=== PATIENT | female | born 1960 | race Caucasian/White ===

== ENCOUNTER 2016-08-27 22:25 | Emergency (ER) | payer OTHER ==
[2016-08-27] MEDS ORDERED: DIAZEPAM 5 MG/ML DISP.SYRIN IM ONE (22:45)
[2016-08-27] MEDS ORDERED: KETOROLAC TROMETHAMINE 30 MG/1ML VIAL IM ONE (22:46)
[2016-08-27] MEDS ORDERED: DIAZEPAM 5 MG TABLET PO ONE (23:29)
--- NOTE | 2016-08-27 23:50 | ED Physician Documentation ---
General Adult - HISTORIAN Historian: patient - HPI Stated Complaint: LBP Chief Complaint: General Adult Onset: days ago (4) Timing: still present Severity: moderate Further Comments: yes (Pt is a 56 yo female with low back pain x 4 days. No acute event. No hx significatn back injury. Pain is in lower back and radiates to R leg.) - ROS CONST: no problems EYES/ENT: none CVS/RESP: none GI/: none MS/SKIN/LYMPH: back pain - PAST HX Past History: hypertension Other History: diabetes Type 2 Allergies/Adverse Reactions: Allergies Allergy/AdvReac Type Severity Reaction Status Date / Time amlodipine besylate Allergy Verified 08/27/16 23:00 [From [facility]] Home Medications: Ambulatory Orders Medication Instructions Recorded Hydrochlorothiazide 25 mg PO DAILY 07/27/13 [Hydrochlorothiazide] Lisinopril [Lisinopril] 40 mg PO DAILY 07/27/13 Carvedilol [Coreg] 6.25 mg PO BID 08/27/16 Hydrochlorothiazide 12.5 mg PO D 08/27/16 - SOCIAL HX Smoking History: cigarettes - FAMILY HX Family History: No - VITAL SIGNS Vital Signs: Vital Signs Temp Pulse Resp BP Pulse Ox 98 F 66 16 173/77 93 08/27/16 22:25 08/27/16 22:25 08/27/16 22:25 08/27/16 22:25 08/27/16 22:25 - REVIEWED ASSESSMENTS Nursing Assessment Reviewed: Yes Vitals Reviewed: Yes Progress - Progress Progress: Toradol 30 mg IM Diazepam 5 mg IM Diazepam 5 mg, one tablet for home. ED Results Lab/Radiology - Orders Orders: ED Orders Category Date Time Status Diazepam [Valium] Med 08/27/16 22:45 Discontinued 5 mg IM NOW ONE Diazepam [Valium] Med 08/27/16 23:29 Discontinued 5 mg PO NOW ONE Ketorolac Tromethamine [Toradol] Med 08/27/16 22:46 Discontinued 30 mg IM NOW ONE General Adult Physical Exam - PHYSICAL EXAM GENERAL APPEARANCE: moderate distress EENT: eye inspection normal NECK: normal inspection, supple RESPIRATORY: no resp distress, chest non-tender, breath sounds normal CVS: reg rate & rhythm, heart sounds normal BACK: normal inspection, other (paralumbar muscle spasm) SKIN: warm/dry EXTREMITIES: non-tender, normal range of motion, no evidence of injury NEURO: oriented X3, motor nml, sensation nml, other (DTR's wnl) Discharge Clincal Impression: Muscle spasm Low back pain Qualifiers: Chronicity: acute Back pain laterality: unspecified Sciatica presence: unspecified whether sciatica present Qualified Code(s): M54.5 - Low back pain Referrals: Pinky Jiménez FNP [Primary Care Provider] - Home Medications: Ambulatory Orders Hydrochlorothiazide [Hydrochlorothiazide] 25 mg PO DAILY 07/27/13 Lisinopril [Lisinopril] 40 mg PO DAILY 07/27/13 Carvedilol [Coreg] 6.25 mg PO BID 08/27/16 Hydrochlorothiazide 12.5 mg PO D 08/27/16 Condition: Good Disposition: 01 HOME, SELF-CARE Decision to Admit: NO Decision Time: 23:25
[2016-08-28 02:44] VITALS: BP 167/64
== END 2016-08-27 23:40 | disposition home or self-care (01) ==
LOC: ED 22:25
DX: M54.5 Low back pain (principal)
CPT/HCPCS: 96372; 99282; 99283; J1885; J3360

== ENCOUNTER 2017-04-13 10:55 | Outpatient (CLI) | payer OTHER ==
[2016-08-28 02:44] VITALS: BP 167/64
== END 2017-04-13 10:56 ==
LOC: CARD 10:55
PROVIDERS: ATTEND Internal Medicine Cardiovascular Disease
DX: I25.10 Atherosclerotic heart disease of native coronary artery without angina pectoris (principal); I73.9 Peripheral vascular disease, unspecified; F17.210 Nicotine dependence, cigarettes, uncomplicated; E11.9 Type 2 diabetes mellitus without complications; E78.5 Hyperlipidemia, unspecified; I10 Essential (primary) hypertension; J44.9 Chronic obstructive pulmonary disease, unspecified
CPT/HCPCS: 99214

== ENCOUNTER 2018-02-20 14:13 | Emergency (ER) | payer BC, OTHER ==
[2018-02-20] MEDS ORDERED: IPRATROPIUM/ALBUTEROL SULFATE 3 ML AMPUL.NEB NEB ONE ×3 (14:34→15:44)
[2018-02-20 15:06] LABS: BASOPHILS % 0.5 (0.0-1.5); EOSINOPHILS % 2.2 % (0.0-6.8); MEAN CORPUSCULAR HEMOGLOBIN 32.1 pg (28.0-34.0); MEAN CORPUSCULAR VOLUME 94.9 fl (80.0-100.0); MONOCYTES % 4.1 % (0.0-11.0)
[2018-02-20 15:18] LABS: eGFR (African) > 60; eGFR (Non-African) > 60
[2018-02-20] MEDS ORDERED: HYDROCHLOROTHIAZIDE 25 MG TABLET PO ONE (15:31)
--- NOTE | 2018-02-20 15:59 | Diagnostic Imaging Report ---
CARMELITA SALDANA [facility] [address] [facility] [address] [place] [address]. [address] Report Submission Date: Feb 20, 2018 3:08:57 PM CDT Patient Study Name: MARIELENA GONZALEZ Date: Feb 20, 2018 2:45:05 PM CDT Modality Type: DX Gender: F Description: CHEST : 58 Institution: [facility] Physician: CARMELITA SALDANA Chest, PA and lateral History: Cough, congestion Findings: No infiltrate, effusion or pneumothorax is present. Heart size, mediastinum and pulmonary vascularity are normal. There is calcification in the thoracic aorta. Impression: No active pulmonary disease. Electronically signed on Feb 20, 2018 3:08:57 PM CDT by: Juan Manuel PANTOJA
[2018-02-20] MEDS ORDERED: HYDROCHLOROTHIAZIDE 25 MG TABLET PO SCH (16:00)
--- NOTE | 2018-02-20 16:00 | ED Physician Documentation ---
General Adult - HISTORIAN Historian: patient - HPI Stated Complaint: cough, SOA Chief Complaint: General Adult Additional Information: Cough and congestion worse for 3-4 days. Seen 3 weeks ago for same and treated with doxycycline and prednisone. Got better for a while. Works at [email or web address] in [employer] where she says smoke is not as bad. Both she, her and her daughter smoke at home. Out of all of her meds for two weeks, but refilled them on 02/19. Levi snot been taking HCTZ because cough causes urinary incontinence. No fever or sweats. No other modifying factors or associated events. - ROS CONST: no problems - PAST HX Past History: COPD, hypertension, other (NIDDM) Allergies/Adverse Reactions: Allergies Allergy/AdvReac Type Severity Reaction Status Date / Time amlodipine besylate Allergy Verified 08/27/16 23:00 [From [facility]] Home Medications: Ambulatory Orders Medication Instructions Recorded Hydrochlorothiazide 25 mg PO DAILY 07/27/13 [Hydrochlorothiazide] Lisinopril [Lisinopril] 40 mg PO DAILY 07/27/13 Carvedilol [Coreg] 6.25 mg PO BID 08/27/16 Hydrochlorothiazide 12.5 mg PO D 08/27/16 Azithromycin [Zithromax] 250 mg PO DAILY #6 tablet 02/20/18 Phenylephrine HCl/Cod/Prometh 5 ml PO Q6H PRN #120 ml 02/20/18 [Phenergan Vc-Codeine Syrup] predniSONE [Deltasone] 30 mg PO DAILY #21 tablet 02/20/18 - SOCIAL HX Smoking History: cigarettes (1 1/2 PPD) - FAMILY HX Family History: No - VITAL SIGNS Vital Signs: Vital Signs Temp Pulse Resp BP Pulse Ox 98.9 F 55 L 26 H 163/114 92 02/20/18 14:13 02/20/18 14:13 02/20/18 14:13 02/20/18 14:13 02/20/18 14:13 - REVIEWED ASSESSMENTS Nursing Assessment Reviewed: Yes Vitals Reviewed: Yes Progress - Progress Progress: Report Submission Date: Feb 20, 2018 3:08:57 PM CDT Patient Study Name: MARIELENA GONZALEZ Date: Feb 20, 2018 2:45:05 PM CDT Modality Type: DX Gender: F Description: CHEST : 58 Institution: [facility] Physician: CARMELITA SALDANA - Chest, PA and lateral History: Cough, congestion Findings: No infiltrate, effusion or pneumothorax is present. Heart size, mediastinum and pulmonary vascularity are normal. There is calcification in the thoracic aorta. Impression: No active pulmonary disease. Electronically signed on Feb 20, 2018 3:08:57 PM CDT by: Juan Manuel Dawn Also sent with script for Duoneb nebs. She has albuterol for neb at home. ED Results Lab/Radiology - Lab Results Lab Results: Lab Results 02/20/18 02/20/18 Unknown Unknown WBC 7.00 K/ul K/ul (4.00-12.00) RBC 4.69 M/ul M/ul (3.90-5.20) Hgb 15.1 g/dL g/dL (12.0-16.0) Hct 44.5 % % (34.5-46.5) MCV 94.9 fl fl (80.0-100.0) MCH 32.1 pg pg (28.0-34.0) MCHC 33.9 g/dL g/dL (30.0-36.0) RDW 12.6 % % (11.3-14.3) Plt Count 278 K/mm3 K/mm3 (130-400) Neut % (Auto) 56.7 % % (39.0-79.0) Lymph % (Auto) 33.9 % % (16.0-50.0) [place] % (Auto) 4.1 % % (0.0-11.0) Eos % (Auto) 2.2 % % (0.0-6.8) Baso % (Auto) 0.5 (0.0-1.5) Neut # (Auto) 4.0 # k/uL # k/uL (1.4-7.7) Lymph # (Auto) 2.4 # k/uL # k/uL (0.6-4.0) [place] # (Auto) 0.3 # k/uL # k/uL (0.0-0.9) Eos # (Auto) 0.2 # k/uL # k/uL (0.0-0.6) Baso # (Auto) 0.0 # k/uL # k/uL (0.0-0.5) Reactive Lymphs % 2.6 % % (0.0-5.0) Reactive Lymphs # 0.2 # k/uL # k/uL (0.0-0.8) Sodium 137 mmol/L mmol/L (136-145) Potassium 4.2 mmol/L mmol/L (3.5-5.1) Chloride 98 mmol/L mmol/L (98-107) Carbon Dioxide 30 mmol/L mmol/L (22-30) BUN 17 mg/dL mg/dL (7-17) Creatinine 0.60 mg/dL mg/dL (0.52-1.04) Estimated Creat Clear 146 Est GFR ( Amer) > 60 (60 - ) Est GFR (Non-Af Amer) > 60 (60 - ) Glucose 359 mg/dL H mg/dL (74-106) Calcium 10.0 mg/dL mg/dL (8.4-10.2) Total Bilirubin 0.1 mg/dL L mg/dL (0.2-1.3) AST 20 U/L U/L (15-46) ALT 33 U/L U/L (13-69) Alkaline Phosphatase 125 U/L U/L (38-126) Total Protein 7.8 g/dL g/dL (6.3-8.2) Albumin 4.6 g/dL g/dL (3.5-5.0) - Orders Orders: ED Orders Category Date Time Status Place IV Lock 1T Care 02/20/18 14:35 Active CHEST 2VIEW [RAD] Stat Exams 02/20/18 Taken BLOOD CULTURE Stat Lab 02/20/18 Ordered CBC/PLATELET/DIFF Routine Lab 02/20/18 Completed CMP Routine Lab 02/20/18 Completed URINALYSIS Routine Lab 02/20/18 Received Hydrochlorothiazide [Hydrodiuril] Med 02/20/18 16:00 Ordered 25 mg PO DAILY Ipratropium/Albuterol Sulfate [Duoneb] Med 02/20/18 14:34 Discontinued 3 ml NEB .STK-MED ONE Ipratropium/Albuterol Sulfate [Duoneb] Med 02/20/18 14:35 Discontinued 3 ml NEB NOW ONE Ipratropium/Albuterol Sulfate [Duoneb] Med 02/20/18 15:44 Once 9 ml NEB NOW ONE General Adult Physical Exam - PHYSICAL EXAM GENERAL APPEARANCE: wheezing throughout on arrival in ER EENT: eye inspection normal, ENT inspection normal, pharynx normal NECK: normal inspection, supple RESPIRATORY: breath sounds normal (at time of exam, after Duoneb. Speaks in quite lengthy sentences) CVS: reg rate & rhythm, heart sounds normal BACK: normal inspection, no CVA tenderness SKIN: warm/dry, normal color NEURO: CN's nml as tested, motor nml, sensation nml, cognition normal Discharge Clincal Impression: Chronic bronchitis Qualifiers: Chronic bronchitis type: unspecified Qualified Code(s): J42 - Unspecified chronic bronchitis Prescriptions: Azithromycin [Zithromax] 250 mg PO DAILY #6 tablet Phenylephrine HCl/Cod/Prometh [Phenergan Vc-Codeine Syrup] 5 ml PO Q6H PRN #120 ml PRN Reason: Cough predniSONE [Deltasone] 30 mg PO DAILY #21 tablet Referrals: Pinky Jiménez FNP [Primary Care Provider] - 2 Days Additional Instructions: It is critical to your well being that you avoid all smoke. Drink plenty of water. Follow up with your provider in the next 10 days for further evaluation of your your blood sugar and blood pressure. Condition: Good Disposition: 01 HOME, SELF-CARE Decision to Admit: NO Decision Time: 16:00
[2018-02-20 16:19] VITALS: BP 189/105
[2018-02-21 06:21] LABS: APPEARANCE,URINE CLEAR (CLEAR); COLOR,URINE YELLOW (YELLOW); OCCULT BLOOD,URINE TRACE (NEGATIVE)
[2018-02-21 06:22] LABS: PH URINE 5.5 (5.0 - 8.0); UROBILINOGEN URINE 0.2 Eu (0.2-1.0)
== END 2018-02-20 16:04 | disposition home or self-care (01) ==
LOC: ED 14:13
DX: J42 Unspecified chronic bronchitis (principal)
CPT/HCPCS: 71046; 80053; 81002; 85025; 87040; 94640; 99284; S1016

== ENCOUNTER 2018-03-03 16:07 | Inpatient (IN) | payer BC, OTHER ==
--- NOTE | 2018-03-03 16:14 | ED Physician Documentation ---
General Adult - HISTORIAN Historian: patient - HPI Stated Complaint: high blood sugar Chief Complaint: General Adult Onset: days ago (6) Timing: still present Severity: moderate Further Comments: yes (She states approx 2 weeks ago she was seen in ER for what she was told was bronchitis and her blood sugar was 300 or so and she was told this was due to the steriods. She states her meter has been broken but over the last few days she has "felt like shit" so she checked and she got 300 two mornings in a row and today it read too high to read. She is increasing her fluids and she is urinating more. Denies any diarrhea. She has stopped the steriods due to the blood sugar.) - ROS CONST: recent illness CVS/RESP: shortness of breath, cough. denies: chest pain GI/: none MS/SKIN/LYMPH: denies: rash NEURO/PSYCH: denies: headache, fainting, dizziness - PAST HX Past History: COPD, other (DM 2 ) Surgeries/Procedures: none Immunizations: UTD Allergies/Adverse Reactions: Allergies Allergy/AdvReac Type Severity Reaction Status Date / Time amlodipine besylate Allergy Verified 03/03/18 16:51 [From [facility]] morphine Allergy Verified 03/03/18 16:51 Home Medications: Ambulatory Orders Medication Instructions Recorded Hydrochlorothiazide 25 mg PO DAILY 07/27/13 Lisinopril 40 mg PO DAILY 07/27/13 Carvedilol [Coreg] 6.25 mg PO BID 08/27/16 Hydrochlorothiazide 12.5 mg PO D 08/27/16 Azithromycin [Zithromax] 250 mg PO DAILY #6 tablet 02/20/18 Phenylephrine HCl/Cod/Prometh 5 ml PO Q6H PRN #120 ml 02/20/18 [Phenergan Vc-Codeine Syrup] predniSONE [Deltasone] 30 mg PO DAILY #21 tablet 02/20/18 - SOCIAL HX Smoking History: cigarettes Alcohol Use: none Drug Use: none - FAMILY HX Family History: No - VITAL SIGNS Vital Signs: Vital Signs Temp Pulse Resp BP Pulse Ox 189/105 02/20/18 16:17 - REVIEWED ASSESSMENTS Nursing Assessment Reviewed: Yes Vitals Reviewed: Yes Progress - Progress Progress: 1740: discussed results so far. She is aware and she is agreeable to admission if needed DG 1800: did discuss steriod - she did take 6 days of 1 30 mg a day then 2 days of half. DG 181: discussed case with Dr Beatty will admit obs until full labs return pt and spouse are agreeable DG ED Results Lab/Radiology - Radiology Radiology Impressions: Examination: PA and lateral chest. History: Evaluate lung thompson. CXR, WEAKNESS FOR A FEW DAYS, BRONCHITIS A FEW WEEKS AGO, PT STATES COPD AND SMOKER (Hx Comparison exam: 20 February 2018 Findings: PA lateral chest demonstrate a normal cardiac and mediastinal silhouette. Vascular calcifications involving the aortic arch. No focal infiltrate. No blunting of the costophrenic margins. Osseous structures are appropriate for age. Impression: No acute pulmonary process. Electronically signed on Mar 03, 2018 5:34:11 PM CDT by: Rafa Chung General Adult Physical Exam - PHYSICAL EXAM GENERAL APPEARANCE: no distress EENT: eye inspection normal, ENT inspection normal NECK: normal inspection RESPIRATORY: wheezes, other (decreased air flow through out ) CVS: reg rate & rhythm, heart sounds normal, equal pulses, no murmur ABDOMEN: soft, normal bowel sounds, no distension, non-tender BACK: normal inspection SKIN: warm/dry, normal color EXTREMITIES: non-tender, normal range of motion, no evidence of injury, no edema NEURO: oriented X3, CN's nml as tested, motor nml, sensation nml, mood/affect nml, cognition normal Discharge Clincal Impression: Hyperglycemia Referrals: Pinky Jiménez FNP [REFERRING] - 2 Days Condition: Fair Disposition: ADMITTED INPATIENT Decision to Admit: [id number] Date of Decison to Admit: 03/03/18 Decision Time: 18:14
[2018-03-03] MEDS ORDERED: IPRATROPIUM/ALBUTEROL SULFATE 3 ML AMPUL.NEB NEB ONE ×2 (16:27→19:46)
[2018-03-03] MEDS ORDERED: 0.9 % SODIUM CHLORIDE 1,000 ML IV ONE (16:27)
[2018-03-03 16:45] LABS: BASOPHILS % 0.2 (0.0-1.5); EOSINOPHILS % 0.2 % (0.0-6.8); MEAN CORPUSCULAR VOLUME 95.5 fl (80.0-100.0); MONOCYTES % 2.3 % (0.0-11.0); NEUTROPHILS # 15.2 # k/uL (1.4-7.7)
[2018-03-03] MEDS ORDERED: LORazepam 1 MG TABLET PO ONE (19:06)
--- NOTE | 2018-03-03 19:47 | Diagnostic Imaging Report ---
WES PRICE [facility] [address] [facility] [address] [place], [place]. [address] Report Submission Date: Mar 03, 2018 5:34:11 PM CDT Patient Study Name: MARIELENA GONZALEZ Date: Mar 03, 2018 4:30:39 PM CDT Modality Type: DX Gender: F Description: CHEST : 58 Institution: [facility] Physician: WES PRICE Examination: PA and lateral chest. History: Evaluate lung thompson. CXR, WEAKNESS FOR A FEW DAYS, BRONCHITIS A FEW WEEKS AGO, PT STATES COPD AND SMOKER (Hx Comparison exam: 20 February 2018 Findings: PA lateral chest demonstrate a normal cardiac and mediastinal silhouette. Vascular calcifications involving the aortic arch. No focal infiltrate. No blunting of the costophrenic margins. Osseous structures are appropriate for age. Impression: No acute pulmonary process. Electronically signed on Mar 03, 2018 5:34:11 PM CDT by: Rafa PANTOJA
--- NOTE | 2018-03-03 20:50 | Diagnostic Imaging Report ---
WES PRICE [facility] [address] [facility].[address] [address] Report Submission Date: Mar 03, 2018 8:00:29 PM CDT Patient Study Name: MARIELENA GONZALEZ Date: Mar 03, 2018 7:21:23 PM CDT Modality Type: CT\SR Gender: F Description: CT PE CHEST : 58 Institution: [facility] Physician: WES PRICE CT pulmonary angiography Clinical history: Shortness of breath. Rule out pulmonary embolus. Contrast administered: 93 mL of Visipaque 320. Technique: CT pulmonary angiography is performed with intravenous infusion of contrast. Sagittal and coronal reconstructions were performed by the technologist. Findings: There are emphysematous changes in lungs with mildly dilated air spaces worse in the upper lobes. There is minimal ground-glass type infiltrate in the right middle lobe. There is mild bronchial wall thickening in the lung bases consistent with bibasilar bronchitis. There is no pleural effusion or significant pleural thickening. The central airways are patent. Vascular calcification is present in the thoracic aorta with extension into the origins of the great vessels and coronary arteries. There is no mediastinal or hilar mass or significant adenopathy. There is no filling defect in the pulmonary arteries or vascular cutoff to suggest the diagnosis of pulmonary embolus. Impression: 1. Emphysema. 2. Bibasilar bronchitis. 3. Minimal ground-glass infiltrate right middle lobe. 4. No pulmonary embolus. Electronically signed on Mar 03, 2018 8:00:29 PM CDT by: Kelechi PANTOJA
[2018-03-03] MEDS ORDERED: BUDESONIDE 0.5MG/2ML AMPUL.NEB NEB SCH (21:00)
[2018-03-03] MEDS: 0.9 % SODIUM CHLORIDE 1,000 ML IV SCH (21:23)
[2018-03-03] MEDS: CARVEDILOL 6.25 MG TABLET PO SCH (21:23)
[2018-03-03] MEDS: ENOXAPARIN SODIUM 30 MG/0.3 ML DISP.SYRIN SQ SCH (21:23)
--- NOTE | 2018-03-03 21:52 | History and Physical Report ---
History of Present Illnes - History of Present Illness Reason for Visit: hyperglycemia, not feeling well History of Present Illness: 87-year-old white female who stated she is been having some upper respiratory symptoms since September of this year. Patient was seen in an urgent care clinic and started on antibiotic and steroid therapy in September. Patient stated her symptoms did improve. However she had a reoccurrence of her symptoms at the end of December. Patient was once again started on antibiotic therapy and steroid with improvement. Approximately one week ago she started having reoccurrence of her symptoms again. Patient presented to the ED and at that time was noted to have a blood sugar in the mid to 300 range. Patient has been diabetic for a number of years but has been maintain on glyburide BID. Patient had not been checking her blood sugars on a regular basis. Patient was once again started on azithromycin and steroids. Patient has been having a lot of polydipsia and polyuria over the last 10 days. Patient had not been feeling well. Patient subsequently came back to the emergency room for evaluation. In the emergency room patient blood sugar was noted to be 600. On CT scan of the checks patient was found to have an infiltrate and was felt to be developing a pneumonia. Patient was subsequently admitted to the hospital for further care and evaluation. - Past Medical History Cardiac: CAD (2010 SD with one stint placed) Pulmonary: Bronchitis - Past Surgical History Past Surgical History: Cholecystectomy, Tonsillectomy, Other (D&C) - Past Family History Mother Family History: (lung cancer, hx of Bipolar) Father Family History: (MVA) Brother 1 Family History: None (good health) - Past Social History Smoke: <1 pack per day Occupation: work at [employer] in [employer] department Alcohol: None Drugs: None Lives: With Family - Health Maintenance Health Maintenance: denies: Cholesterol Influenza Vaccine: Current for this Influenza Season Pneumonia Vaccine: Yes Resuscitation Status: Resusciation Status Resuscitation Status Full Code - Unable to Obtain History Unable to Obtain: No Review of Systems - Review of Systems Constitutional: negative: Fever, Chills Eyes: negative: pain, vision change ENT: negative: Ear Pain, Ear Discharge, Nose Pain, Nose Discharge, Nose Congestion, Mouth Pain, Throat Swelling Respiratory: Cough, SOB with Excertion, Sputum (green yellow). negative: Dry, Shortness of Breath, Hemoptysis, Pleuritic Pain Cardiovascular: negative: Chest Pain, Palpitations, Orthopnea Gastrointestinal: Nausea. negative: Vomiting, Abdominal Pain, Diarrhea, Constipation, Melena, Hematochezia Genitourinary: Dysuria, Frequency, Hematuria. negative: Incontinence Musculoskeletal: negative: Neck Pain, Shoulder Pain Skin: negative: Rash Neurological: Weakness. negative: Numbness, Incoordination, Change in Speech, Confusion, Seizures - Medications/Allergies Allergies/Adverse Reactions: Allergies Allergy/AdvReac Type Severity Reaction Status Date / Time amlodipine besylate Allergy Verified 03/03/18 16:51 [From [facility]] morphine Allergy Verified 03/03/18 16:51 Current Inpatient Medications: Current Inpatient Medications Albuterol/Ipratropium (Duoneb) 3 ml NEB NOW ONE Stop: 03/03/18 19:47 Last Admin: 03/03/18 21:25 Dose: Not Given Albuterol/Ipratropium (Duoneb) 3 ml NEB Q4 [facility] Carvedilol (Coreg) 6.25 mg PO BID [facility] Last Admin: 03/03/18 21:23 Dose: 6.25 mg Enoxaparin Sodium (Lovenox) 30 mg SQ QD [facility] Stop: 03/16/18 21:01 Last Admin: 03/03/18 21:23 Dose: 30 mg Sodium Chloride (Normal Saline) 1,000 mls @ 100 mls/hr IV Q10H [facility] Last Admin: 03/03/18 21:23 Dose: 100 mls/hr Miscellaneous (Hydrochlorothiazide [Hydrochlorothiazide]) 12.5 mg PO D [facility] Miscellaneous (Lisinopril [Lisinopril]) 40 mg PO DAILY [facility] Exam - Exam Vital Signs: Vital Signs (72 hours) 03/03/18 16:07 Temperature 98.1 F Pulse Rate [ 76 Right Pulse ox] Respiratory 16 Rate Blood Pressure 140/80 [Right Arm] O2 Sat by Pulse 90 L Oximetry General: Alert, Oriented to Person, Oriented to Place, Oriented to Time, Cooperative, Moderate distress HEENT: Atraumatic, PERRLA, EOMI, Nose Mucous membr. moist/[place], Dentition Normal, Hearing Grossly Normal. No: Mouth Mucous membr. moist/[place] (dry), Pharyngeal Erythema Neck: Normal Range of Motion. No: Stridor, Rigidity (WNL) Carotids: WNL Thyroid: WNL Lungs: Clear to auscultation, Normal air movement, Speaks full Sentences Cardiovascular: Regular rate, Normal S1, Normal S2, No murmurs Abdomen: Normal bowel sounds, Soft, No tenderness, No hepatospenomegaly, No masses Integumentary: Normal, [place], Warm, Dry Extremities: No clubbing, No cyanosis, No edema, Normal pulses, No tenderness/swelling Neurological: Normal gait, Normal speech, Strength Equal Bilat, Normal tone, Sensation intact, Cranial nerves 3-12 NL, Reflexes 2+ Psych/Mental Status: Mental status NL, Mood NL, Appropriate Affect, Intact [place] gment - Laboratory Results Laboratory Results: Laboratory Results 03/03/18 03/03/18 16:26 18:35 WBC 17.70 H RBC 4.56 Hgb 15.1 Hct 43.6 MCV 95.5 MCH 33.0 MCHC 34.6 RDW 12.9 Plt Count 275 Neut % (Auto) 86.2 H Lymph % (Auto) 10.2 L [place] % (Auto) 2.3 Eos % (Auto) 0.2 Baso % (Auto) 0.2 Neut # (Auto) 15.2 H Lymph # (Auto) 1.8 [place] # (Auto) 0.4 Eos # (Auto) 0.0 Baso # (Auto) 0.0 Reactive Lymphs % 0.9 Reactive Lymphs # 0.2 D-Dimer 384 Assessment/Plan - Assessment/Plan (1) Type 2 diabetes mellitus Status: Chronic Qualifiers: Diabetes mellitus terminal make up operator insulin use: without terminal make up operator use Diabetes mellitus complication status: with hyperglycemia Qualified Code(s): E11.65 - Type 2 diabetes mellitus with hyperglycemia Narrative Support Text: I suspect that the patient may be an early DKA with the is symptoms that she is having. Will go ahead and give the patient IV fluids. Will start patient on insulin therapy. Will get a dietary consult for her diabetes. (2) Pneumonia Status: Acute Qualifiers: Lung location: middle lobe of lung Assessment: Patient will be started on DuoNeb treatments every four hours. Because of the patient diabetes will hold off of steroid therapy. Patient will be started on antibiotic therapy of Levaquin and azithromycin. (3) Essential hypertension Status: Chronic Plan: Continue home medications. VTE Assessment - RISK FACTOR SCORE VTE RISK FACTOR SCORES: AGE OVER 60 YEARS, ACUTE RESPIRATORY FAILURE/SEVERE COPD, ANTICIPATED BED CONFINEMENT OR IMMOBILIZATION > 24 HOURS - RISK VTE HIGH RISK: SCORE OF 3-4 (RISK PROXIMAL DVT 4-8%) PROPHYLAXIS NEEDED
[2018-03-03] MEDS: IPRATROPIUM/ALBUTEROL SULFATE 3 ML AMPUL.NEB NEB SCH (21:53)
[2018-03-03] MEDS ORDERED: AZITHROMYCIN 500 MG VIAL IV ONE (22:26)
[2018-03-03] MEDS ORDERED: 0.9 % SODIUM CHLORIDE 250 ML IV ONE (22:27)
[2018-03-03] MEDS: BACLOFEN 10 MG TABLET PO PRN (22:34)
[2018-03-03] MEDS: HYDROCHLOROTHIAZIDE 25 MG TABLET PO SCH (22:35)
[2018-03-03] MEDS: INSULIN LISPRO 100 UNIT/ML 3ML VIAL SQ SCH (22:41)
[2018-03-03] MEDS: AZITHROMYCIN 500 MG in 0.9 % SODIUM CHLORIDE 250 ML IV SCH (22:42)
[2018-03-04 00:47] VITALS: BMI 26.7
[2018-03-04] MEDS: IPRATROPIUM/ALBUTEROL SULFATE 3 ML AMPUL.NEB NEB SCH ×6 (01:50→22:30)
[2018-03-04] MEDS: BACLOFEN 10 MG TABLET PO PRN ×3 (05:09→21:28)
[2018-03-04] MEDS ORDERED: INSULIN LISPRO 100 UNIT/ML 3ML VIAL SQ SCH (07:30)
[2018-03-04] MEDS: INSULIN LISPRO 100 UNIT/ML 3ML VIAL SQ SCH ×4 (07:48→21:53)
[2018-03-04 08:28] LABS: APPEARANCE,URINE CLEAR (CLEAR); COLOR,URINE YELLOW (YELLOW); OCCULT BLOOD,URINE TRACE-INTACT (NEGATIVE); PH URINE 5.5 (5.0 - 8.0); UROBILINOGEN URINE 0.2 Eu (0.2-1.0)
[2018-03-04] MEDS ORDERED: HYDROCHLOROTHIAZIDE 12.5 MG PO SCH (09:00)
[2018-03-04] MEDS ORDERED: LISINOPRIL 40 MG PO SCH (09:00)
[2018-03-04] MEDS: CARVEDILOL 6.25 MG TABLET PO SCH ×2 (09:07→21:28)
[2018-03-04] MEDS: LEVOFLOXACIN 500 MG TABLET PO SCH (09:08)
[2018-03-04] MEDS: HYDROCHLOROTHIAZIDE 25 MG TABLET PO SCH (09:08)
[2018-03-04] MEDS: LISINOPRIL 20 MG TABLET PO SCH (09:09)
[2018-03-04] MEDS: 0.9 % SODIUM CHLORIDE 1,000 ML IV SCH ×2 (09:13→13:50)
[2018-03-04] MEDS ORDERED: ACETAMINOPHEN 500 MG TABLET ONE (09:35)
[2018-03-04] MEDS: ACETAMINOPHEN 500 MG TABLET PO PRN ×2 (09:45→19:00)
[2018-03-04 10:22] LABS: BASO % 0.4 % (0.0-1.5); EOS % 0.9 % (0.0-6.8); LYMPH ABS # 4.25 thou/uL (0.60-4.00); MCH. 30.8 pg (28.0-34.0); MCV 89.1 fL (80.0-100.0); MONOCYTE % 4.9 % (0.0-11.0); MONOCYTE ABS # 0.77 thou/uL (0.00-0.90); PLATELET COUNT 252 thou/uL (130-400)
[2018-03-04 10:31] LABS: TOTAL PROTEIN 6.3 g/dL (6.0-8.5)
--- NOTE | 2018-03-04 10:33 | Inpatient Progress Note ---
Subjective - Required Recertification Statement I anticipate X number of days because-include discharge plan: 1 - Review of Systems Events since last encounter: Patient states she is feeling much better today than what she was yesterday. Patient did not have any as much polydipsia and polyuria as previously. Patient still does have a slightly productive cough of green phlegm. Patient is not had any fever or chills noted. General: Fatigue Objective - Exam Vitals and I&O: Vital Signs Temp 99.2 F 03/04/18 06:00 Pulse 78 03/04/18 06:20 Resp 18 03/04/18 06:20 BP 139/64 03/04/18 06:00 Pulse Ox 94 03/04/18 07:00 Intake & Output 03/03/18 03/03/18 03/04/18 11:59 23:59 11:59 Intake Total 600 2049 Balance 600 2049 Weight 70.761 kg 71.215 kg Intake: IV 600 1400 Left Antecubital 600 400 Right Hand 1000 Oral 650 Other: Voiding Method Toilet Toilet # Voids 2 4 General: Alert, Oriented to Person, Oriented to Place, Oriented to Time, Cooperative Neck: Supple, No JVD Lungs: Normal air movement, Wheezes (mild expiratory on right). No: Rales, Rhonchi Cardiovascular: Regular rate, Normal S1, Normal S2 Abdomen: Normal bowel sounds, Soft, No tenderness Extremities: No clubbing, No cyanosis, No edema Skin: Normal, [place], Warm, Dry Neurological: Normal gait, Normal speech, Strength Equal Bilat Psych/Mental Status: Mental status NL, Mood NL, Appropriate Affect, Intact Judgment - Results Results: Laboratory Results WBC 17.70 K/ul (4.00-12.00) H 03/03/18 16:26 WBC Comment 15.62 thou/uL (4.00-12.00) H 03/04/18 08:00 RBC 4.26 mil/uL (3.90-5.20) 03/04/18 08:00 Hgb 15.1 g/dL (12.0-16.0) 03/03/18 16:26 Hemoglobin (Send Out) 13.1 g/dL (11.5-16.0) 03/04/18 08:00 Hct 43.6 % (34.5-46.5) 03/03/18 16:26 Hct (Send Out) 38.0 % (34.5-46.5) 03/04/18 08:00 MCV 95.5 fl (80.0-100.0) 03/03/18 16: MCV (Send Out) 89.1 fL (80.0-100.0) 03/04/18 08:00 MCH 30.8 pg (28.0-34.0) 03/04/18 08:00 MCHC 34.6 g/dL (30.0-36.0) 03/03/18 16: MCHC (Send Out) 34.5 g/dL (30.0-36.0) 03/04/18 08:00 RDW 12.9 % (11.3-14.3) 03/03/18 16: RDW Coeff of Tony 12.7 % (11.3-14.7) 03/04/18 08:00 Plt Count 252 thou/uL (130-400) 03/04/18 08:00 Neut % (Auto) 86.2 % (39.0-79.0) H 03/03/18 16:26 Lymph % (Auto) 10.2 % (16.0-50.0) L 03/03/18 16: [place] % (Auto) 2.3 % (0.0-11.0) 03/03/18 16: Eos % (Auto) 0.2 % (0.0-6.8) 03/03/18 16: Baso % (Auto) 0.2 (0.0-1.5) 03/03/18 16:26 Neut # (Auto) 15.2 # k/uL (1.4-7.7) H 03/03/18 16:26 Lymph # (Auto) 1.8 # k/uL (0.6-4.0) 03/03/18 16:26 [place] # (Auto) 0.4 # k/uL (0.0-0.9) 03/03/18 16:26 Eos # (Auto) 0.0 # k/uL (0.0-0.6) 03/03/18 16:26 Baso # (Auto) 0.0 # k/uL (0.0-0.5) 03/03/18 16:26 Absolute Lymphs (auto) 4.25 thou/uL (0.60-4.00) H 03/04/18 08:00 Absolute Monos (auto) 0.77 thou/uL (0.00-0.90) 03/04/18 08:00 Absolute Basos (auto) 0.06 thou/uL (0.00-0.50) 03/04/18 08:00 Neutrophils % 66.7 % (39.0-79.0) 03/04/18 08:00 Reactive Lymphs % 0.9 % (0.0-5.0) 03/03/18 16:26 Absolute Neutrophils 10.42 thou/uL (1.50-7.70) H 03/04/18 08:00 Lymphocytes 27.2 % (16.0-50.0) 03/04/18 08:00 Reactive Lymphs # 0.2 # k/uL (0.0-0.8) 03/03/18 16:26 Monocytes 4.9 % (0.0-11.0) 03/04/18 08:00 Absolute Eosinophils 0.14 thou/uL (0.00-0.60) 03/04/18 08:00 Basophilia % 0.4 % (0.0-1.5) 03/04/18 08:00 Eosinophil Count 0.9 % (0.0-6.8) 03/04/18 08:00 D-Dimer 384 ng/mL (6.0-682) 03/03/18 18:35 Urine Color Yellow (YELLOW) 03/03/18 17:15 Urine Appearance Clear (CLEAR) 03/03/18 17:15 Urine pH 5.5 (5.0 - 8.0) 03/03/18 17:15 Ur Specific [place] <=1.005 (1.010-1.030) L 03/03/18 17:15 Urine Protein Negative mg/dL (NEGATIVE) 03/03/18 17:15 Urine Ketones 1+ mg/dL (NEGATIVE) H 03/03/18 17:15 Urine Occult Blood Trace-intact (NEGATIVE) H 03/03/18 17:15 Urine Nitrite Negative (NEGATIVE) 03/03/18 17:15 Urine Bilirubin Negative (NEGATIVE) 03/03/18 17:15 Urine Urobilinogen 0.2 Eu (0.2-1.0) 03/03/18 17:15 Ur Leukocyte Esterase Negative (NEGATIVE) 03/03/18 17:15 Urine Glucose 2+ mg/dL (NEGATIVE) H 03/03/18 17:15 Assessment/Plan - Assessment/Plan (1) Type 2 diabetes mellitus Status: Chronic Current Visit: Yes Qualifiers: Diabetes mellitus longterm insulin use: without it teacher use Diabetes mellitus complication status: with hyperglycemia Qualified Code(s): E11.65 - Type 2 diabetes mellitus with hyperglycemia Assessment: Blood sugars have been in the 200 to 300 range. I will get a dietary consult to talk to the patient about her diabetes mellitus. Patient will be started on metformin 500 mg BID. Patient is advised of possible side effects including diarrhea. (2) Pneumonia Status: Acute Current Visit: Yes Qualifiers: Lung location: middle lobe of lung Assessment: Will continue with high flow nebulization treatments with DuoNeb. Will continue with Levaquin and azithromycin. Patient does not appear to be requiring oxygen at this time. (3) Essential hypertension Status: Chronic Current Visit: Yes Assessment: Continue with home medications.
[2018-03-04] MEDS ORDERED: NICOTINE 14mg PATCH.TD24 TD SCH (12:00)
[2018-03-04] MEDS ORDERED: NICOTINE 14mg PATCH.TD24 TD ONE ×2 (12:16→23:46)
[2018-03-04] MEDS: NICOTINE 14mg PATCH.TD24 TD SCH (18:59)
[2018-03-04] MEDS: ENOXAPARIN SODIUM 30 MG/0.3 ML DISP.SYRIN SQ SCH (21:28)
[2018-03-04] MEDS: AZITHROMYCIN 500 MG in 0.9 % SODIUM CHLORIDE 250 ML IV SCH (21:30)
[2018-03-05] MEDS: IPRATROPIUM/ALBUTEROL SULFATE 3 ML AMPUL.NEB NEB SCH ×3 (01:21→09:40)
[2018-03-05] MEDS: 0.9 % SODIUM CHLORIDE 1,000 ML IV SCH (06:10)
[2018-03-05] MEDS: INSULIN LISPRO 100 UNIT/ML 3ML VIAL SQ SCH (07:20)
[2018-03-05] MEDS: LEVOFLOXACIN 500 MG TABLET PO SCH (08:46)
[2018-03-05] MEDS: LISINOPRIL 20 MG TABLET PO SCH (08:47)
[2018-03-05] MEDS: NICOTINE 14mg PATCH.TD24 TD SCH (08:47)
[2018-03-05] MEDS: HYDROCHLOROTHIAZIDE 25 MG TABLET PO SCH (08:47)
[2018-03-05] MEDS: CARVEDILOL 6.25 MG TABLET PO SCH (08:47)
[2018-03-05 10:29] VITALS: BP 124/68
[2018-03-05] MEDS ORDERED: INSULIN LISPRO 100 UNIT/ML 3ML VIAL SQ ONE (17:59)
--- NOTE | 2018-03-22 13:15 | Discharge Summary ---
Discharge Summary - Discharge Sumary History of Present Illness: 87-year-old white female who stated she is been having some upper respiratory symptoms since September of this year. Patient was seen in an urgent care clinic and started on antibiotic and steroid therapy in September. Patient stated her symptoms did improve. However she had a reoccurrence of her symptoms at the end of December. Patient was once again started on antibiotic therapy and steroid with improvement. Approximately one week ago she started having reoccurrence of her symptoms again. Patient presented to the ED and at that time was noted to have a blood sugar in the mid to 300 range. Patient has been diabetic for a number of years but has been maintain on glyburide BID. Patient had not been checking her blood sugars on a regular basis. Patient was once again started on azithromycin and steroids. Patient has been having a lot of polydipsia and polyuria over the last 10 days. Patient had not been feeling well. Patient subsequently came back to the emergency room for evaluation. In the emergency room patient blood sugar was noted to be 600. On CT scan of the checks patient was found to have an infiltrate and was felt to be developing a pneumonia. Patient was subsequently admitted to the hospital for further care and evaluation. Condition at Discharge: Stable Home Medications: Ambulatory Orders Medication Instructions Recorded Lisinopril 40 mg PO DAILY 07/27/13 Carvedilol [Coreg] 6.25 mg PO BID 08/27/16 Hydrochlorothiazide 12.5 mg PO D 08/27/16 Azithromycin [Zithromax] 250 mg PO DAILY #4 tablet 03/05/18 Ipratropium/Albuterol Sulfate 3 ml NEB BID ampul.neb 03/05/18 [Duoneb] Levofloxacin [Levaquin] 500 mg PO D #7 tablet 03/05/18 Consultations this Visit: None Procedures this Visit: None Allergies/Adverse Reactions: Allergies Allergy/AdvReac Type Severity Reaction Status Date / Time amlodipine besylate Allergy Verified 03/03/18 16:51 [From [facility]] morphine Allergy Verified 03/03/18 16:51 Discharge Summary: Patient was given IV insulin to try to get her blood sugars under better control. Patient was started on diabetic teaching. Patient was started on metformin 500 [address] day[address] On [address] scan of her chest patient did have a right middle lobe infiltrate. Patient was felt to be developing a pneumonia. Patient only was treated with azithromycin and Levaquin IV. Patient respiratory symptoms did improve during her hospital stay. Patient other chronic medical problems remain stable during her hospitalization. Patient other chronic medical problems remain stable during her hospitalization. - Final Diagnosis (1) Type 2 diabetes mellitus Problems: improved (2) Pneumonia Problems: imporved (3) Essential hypertension Problems: stable on home meds
== END 2018-03-05 10:29 | disposition home or self-care (01) | DRG 637 ==
LOC: ED 16:07 → SOUTH 19:41 → OBSVTOIN 19:41
PROVIDERS: ADMIT Family Medicine; ATTEND Family Medicine
DX: E11.65 Type 2 diabetes mellitus with hyperglycemia (principal); J18.9 Pneumonia, unspecified organism; F17.210 Nicotine dependence, cigarettes, uncomplicated; J44.9 Chronic obstructive pulmonary disease, unspecified; I10 Essential (primary) hypertension
CPT/HCPCS: 71046; 71275; 80053; 81002; 85025; 85379; 87040; J0456; J1650; J1815; J7030; J7050; 94640; 96365; 99222; 99232; 99238; Q9967; S1016

== ENCOUNTER 2018-09-21 09:04 | Outpatient (CLI) | payer OTHER ==
[2018-09-21 09:44] LABS: eGFR (Non-African) > 60
== END 2018-09-21 09:06 ==
LOC: LAB 09:04
PROVIDERS: ATTEND Family Medicine
DX: E11.65 Type 2 diabetes mellitus with hyperglycemia (principal)
CPT/HCPCS: 36415; 80053; 80061; 82043; 83036